=== PATIENT | male | born 1980 | race Caucasian/White ===

== ENCOUNTER 2018-08-27 14:03 | Inpatient (IN) | payer OTHER ==
[2018-08-27 17:29] VITALS: BMI 27.4
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
[2018-08-27] MEDS ORDERED: MENTHOL/PHENOL 1 EACH UD MM PRN (19:43)
[2018-08-27] MEDS ORDERED: BISMUTH SUBSALICYLATE 524 MG/30 ML UD PO PRN (19:43)
[2018-08-27] MEDS ORDERED: MAG HYDROX/AL HYDROX/SIMETH 30 ML UNIT-DOSE CUP PO PRN (19:43)
[2018-08-27] MEDS ORDERED: MELATONIN 5 MG TABLETS PO PRN (19:43)
[2018-08-27] MEDS ORDERED: ACETAMINOPHEN 325 MG TABLET (FP) PO PRN ×2 (19:43)
[2018-08-27] MEDS ORDERED: IBUPROFEN 400 MG TABLET (FP) PO PRN (19:43)
[2018-08-27] MEDS ORDERED: METHOCARBAMOL 500 MG TABLET PO PRN (19:43)
[2018-08-27] MEDS ORDERED: MAGNESIUM HYDROX 2400MG/30ML ORAL SUSPENSION 30 ML CUP PO PRN (19:43)
[2018-08-27] MEDS ORDERED: MAGNESIUM CITRATE 300 ML BOTTLE PO PRN (19:43)
[2018-08-27] MEDS ORDERED: NICOTINE POLACRILEX 2 MG GUM BUC PRN (19:43)
[2018-08-27] MEDS ORDERED: METHADONE HCL 10 MG TABLET (FOR DETOX USE ONLY) PO ONE ×2 (21:00→23:00)
[2018-08-27] MEDS: THIAMINE HCL 100 MG TABLET (FP) PO SCH (22:20)
[2018-08-28] MEDS ORDERED: METHADONE HCL 10 MG TABLET (FOR DETOX USE ONLY) PO ONE (10:00)
[2018-08-28 10:15] LABS: HEMATOCRIT 39.4 % (35.4-49); HEMOGLOBIN 13.1 GM/dL (11.7-16.9); MCH 30.6 pg (25.7-33.7); MCHC 33.4 g/dl (32.0-35.9); MEAN CELL VOLUME 91.7 fl (80-96); MEAN PLT VOLUME 10.4 fl (7.5-11.1); PLATELET COUNT 163 K/MM3 (134-434); RBC 4.29 M/mm3 (4.00-5.60); RDW 14.4 % (11.9-15.9); WHITE BLOOD COUNT 4.1 K/mm3 (4.0-10.0)
[2018-08-28] MEDS: NICOTINE 21 MG/24 HOURS TOPICAL PATCH TD SCH (10:19)
[2018-08-28] MEDS: PRENATAL VITAMINS W/ FOLIC ACID TABLET (FP) PO SCH (10:19)
[2018-08-28 10:25] LABS: ALK PHOS 93 U/L (45-117); ANION GAP 4 MMOL/L (8-16); BILIRUBIN,TOTAL 0.3 mg/dL (0.2-1); BLOOD UREA NITROGEN 9 mg/dL (7-18); CALCIUM 8.9 mg/dL (8.5-10.1); CHLORIDE 106 mmol/L (98-107); CO2 32 mmol/L (21-32); CREATININE 0.8 mg/dL (0.55-1.3); GLUCOSE,RANDOM 105 mg/dL (74-106); POTASSIUM 4.2 mmol/L (3.5-5.1); SGOT/AST 40 U/L (15-37); SGPT/ALT 74 U/L (13-61); SODIUM 141 mmol/L (136-145); TOT PROT 6.1 g/dl (6.4-8.2)
--- NOTE | 2018-08-28 14:28 | EKG ---
Test Reason : Blood Pressure : / mmHG Vent. Rate : 059 BPM Atrial Rate : 059 BPM P-R Int : 158 ms QRS Dur : 092 ms QT Int : 422 ms P-R-T Axes : 020 005 019 degrees QTc Int : 417 ms SINUS BRADYCARDIA MINIMAL VOLTAGE CRITERIA FOR LVH, MAY BE NORMAL VARIANT BORDERLINE ECG NO PREVIOUS ECGS AVAILABLE Confirmed by MD FALQUITO, BEATRICE ([id number]) on 08/28/2018 2:28:36 PM Referred By: Confirmed By:BEATRICE HUDDLESTON MD
--- NOTE | 2018-08-28 17:09 | PN ---
BHS COWS - Scale Resting Pulse: 0= [place] 80 or Below Sweatin= Beads of Sweat on Face Restless Observation: 0= Sits Still Pupil Size: 0= Normal to Room Light Bone or Joint Aches: 4=Acute Joint/Muscle Pain Runny Nose/ Eye Tearin= None GI Upset > 30mins: 0= None Tremor Observation of Outstretched Hands: 0= None Yawning Observation: 1= 1-2x During Session Anxiety or Irritability: 1=Feels Anxious/Irritable Goose Flesh Skin: 0=Smooth Skin COWS Score: 9 BHS Progress Note (SOAP) Subjective: sweats joint pain interrupted sleep Objective: 08/28/18 17:08 Vital Signs 08/28/18 08/28/18 09:59 14:38 Temperature 98.0 F 98.6 F Pulse Rate 71 67 Respiratory 18 18 Rate Blood Pressure 137/61 138/61 Laboratory Last Values WBC 4.1 K/mm3 (4.0-10.0) 08/28/18 07:48 RBC 4.29 M/mm3 (4.00-5.60) 08/28/18 07:48 Hgb 13.1 GM/dL (11.7-16.9) 08/28/18 07:48 Hct 39.4 % (35.4-49) 08/28/18 07:48 MCV 91.7 fl (80-96) 08/28/18 07:48 MCH 30.6 pg (25.7-33.7) 08/28/18 07:48 MCHC 33.4 g/dl (32.0-35.9) 08/28/18 07:48 RDW 14.4 % (11.9-15.9) 08/28/18 07:48 Plt Count 163 K/MM3 (134-434) 08/28/18 07:48 MPV 10.4 fl (7.5-11.1) 08/28/18 07:48 Sodium 141 mmol/L (136-145) 08/28/18 07:48 Potassium 4.2 mmol/L (3.5-5.1) 08/28/18 07:48 Chloride 106 mmol/L (98-107) 08/28/18 07:48 Carbon Dioxide 32 mmol/L (21-32) 08/28/18 07:48 Anion Gap 4 MMOL/L (8-16) L 08/28/18 07:48 BUN 9 mg/dL (7-18) 08/28/18 07:48 Creatinine 0.8 mg/dL (0.55-1.3) 08/28/18 07:48 Creat Clearance w eGFR 107.62 (>60) 08/28/18 07:48 Random Glucose 105 mg/dL (74-106) 08/28/18 07:48 Calcium 8.9 mg/dL (8.5-10.1) 08/28/18 07:48 Total Bilirubin 0.3 mg/dL (0.2-1) 08/28/18 07:48 AST 40 U/L (15-37) H 08/28/18 07:48 ALT 74 U/L (13-61) H 08/28/18 07:48 Alkaline Phosphatase 93 U/L (45-117) 08/28/18 07:48 Total Protein 6.1 g/dl (6.4-8.2) L 08/28/18 07:48 Albumin 3.0 g/dl (3.4-5.0) L 08/28/18 07:48 Labs noted Assessment: 08/28/18 17:08 AOX3 no distress EENT: wnl full rom ambulating in the unit Plan: continue detox increase fluids continue to monitor
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
[2018-08-28] MEDS: THIAMINE HCL 100 MG TABLET (FP) PO SCH (23:33)
[2018-08-28] MEDS: cloNIDine HCL 0.1 MG TABLET PO PRN (23:33)
[2018-08-28] MEDS: MIRTAZAPINE 15 MG TABLET (FP) PO SCH (23:33)
[2018-08-28] MEDS: hydrOXYzine PAMOATE 50 MG CAPSULE (FP) PO PRN (23:33)
[2018-08-29] MEDS ORDERED: METHADONE HCL 10 MG TABLET (FOR DETOX USE ONLY) PO ONE (10:00)
[2018-08-29] MEDS: NICOTINE 21 MG/24 HOURS TOPICAL PATCH TD SCH (10:34)
[2018-08-29] MEDS: PRENATAL VITAMINS W/ FOLIC ACID TABLET (FP) PO SCH (10:35)
--- NOTE | 2018-08-29 15:50 | PN ---
BHS COWS - Scale Resting Pulse: 1= [place] 81-100 Sweatin= Chills/Flushing Restless Observation: 3= Extraneous Movement Pupil Size: 0= Normal to Room Light Bone or Joint Aches: 2= Severe Diffuse Aches Runny Nose/ Eye Tearin= Runny Nose/Eyes GI Upset > 30mins: 1= Stomach Cramp Tremor Observation of Outstretched Hands: 2= Slight Tremor Visible Yawning Observation: 0= None Anxiety or Irritability: 2=Irritable/Anxious Goose Flesh Skin: 0=Smooth Skin COWS Score: 14 BHS Progress Note (SOAP) Subjective: Denies withdrawal symptoms presently stating medication is helping. Patient appears anxious. Objective: 08/29/18 15:48 Last Vital Signs Temp Pulse Resp BP Pulse Ox 98.4 F 89 18 100/61 08/29/18 14:27 08/29/18 14:27 08/29/18 14:27 08/29/18 14:27 Laboratory Tests 08/28/18 08/28/18 08/28/18 07:48 07:48 07:48 WBC 4.1 RBC 4.29 Hgb 13.1 Hct 39.4 MCV 91.7 MCH 30.6 MCHC 33.4 RDW 14.4 Plt Count 163 MPV 10.4 Sodium 141 Potassium 4.2 Chloride 106 Carbon Dioxide 32 Anion Gap 4 L BUN 9 Creatinine 0.8 Creat Clearance w eGFR 107.62 Random Glucose 105 Calcium 8.9 Total Bilirubin 0.3 AST 40 H ALT 74 H Alkaline Phosphatase 93 Total Protein 6.1 L Albumin 3.0 L RPR Titer Nonreactive Labs reviewed Assessment: 08/29/18 15:49 Withdrawal symptoms Plan: Continue detox Encouraged PO water intake
[2018-08-29] MEDS: hydrOXYzine PAMOATE 50 MG CAPSULE (FP) PO PRN (23:16)
[2018-08-29] MEDS: cloNIDine HCL 0.1 MG TABLET PO PRN (23:16)
[2018-08-29] MEDS: MIRTAZAPINE 15 MG TABLET (FP) PO SCH (23:16)
[2018-08-29] MEDS: THIAMINE HCL 100 MG TABLET (FP) PO SCH (23:37)
[2018-08-30] MEDS ORDERED: METHADONE HCL 10 MG TABLET (FOR DETOX USE ONLY) PO ONE (10:00)
[2018-08-30] MEDS: NICOTINE 21 MG/24 HOURS TOPICAL PATCH TD SCH (10:57)
[2018-08-30] MEDS: PRENATAL VITAMINS W/ FOLIC ACID TABLET (FP) PO SCH (10:58)
--- NOTE | 2018-08-30 15:05 | PN ---
[facility] Progress Note Note: PATIENT CONTINUE ON DETOX MTD REGIMEN. STATES HE FEELS BETTER, C/O INTERRUPTED SLEEP. Laboratory Tests 08/28/18 08/28/18 08/28/18 07:48 07:48 07:48 WBC 4.1 RBC 4.29 Hgb 13.1 Hct 39.4 MCV 91.7 MCH 30.6 MCHC 33.4 RDW 14.4 Plt Count 163 MPV 10.4 Sodium 141 Potassium 4.2 Chloride 106 Carbon Dioxide 32 Anion Gap 4 L BUN 9 Creatinine 0.8 Creat Clearance w eGFR 107.62 Random Glucose 105 Calcium 8.9 Total Bilirubin 0.3 AST 40 H ALT 74 H Alkaline Phosphatase 93 Total Protein 6.1 L Albumin 3.0 L RPR Titer Nonreactive Vital Signs Temperature 98.1 F 08/30/18 13:39 Pulse Rate 70 08/30/18 13:39 Respiratory Rate 16 08/30/18 13:39 Blood Pressure 107/59 L 08/30/18 13:39 O2 Sat by Pulse Oximetry (%) PE: ALERT AND ORIENTED X 3 SKIN WARM AND DRY +PERRLA, EOMS INTACT BL EXT FULL ROM, AMB AD FAB A/P: WITHDRAWAL SX CONTINUE DETOX D/C IN AM
[2018-08-30] MEDS: MIRTAZAPINE 15 MG TABLET (FP) PO SCH (22:13)
[2018-08-30] MEDS: THIAMINE HCL 100 MG TABLET (FP) PO SCH (22:14)
[2018-08-30] MEDS: hydrOXYzine PAMOATE 50 MG CAPSULE (FP) PO PRN (22:15)
[2018-08-31] MEDS ORDERED: METHADONE HCL 5 MG TABLET (FOR DETOX USE ONLY) PO ONE (06:00)
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
[2018-08-31 11:10] VITALS: BP 123/72; PULSE 87; TEMP 99.1
== END 2018-08-31 09:16 | disposition home or self-care (01) | DRG 773 ==
LOC: YASAS 14:03 → Y6N 20:47
PROVIDERS: ADMIT Surgery; ATTEND Surgery
PROC: HZ2ZZZZ Detoxification Services for Substance Abuse Treatment (ICD-10-PCS; principal; 2018-08-27)
DX: F11.23 Opioid dependence with withdrawal (principal); F14.20 Cocaine dependence, uncomplicated; F12.20 Cannabis dependence, uncomplicated; F17.210 Nicotine dependence, cigarettes, uncomplicated; F19.24 Other psychoactive substance dependence with psychoactive substance-induced mood disorder; G47.00 Insomnia, unspecified; B18.2 Chronic viral hepatitis C; Z91.19 Patient's noncompliance with other medical treatment and regimen
CPT/HCPCS: 36415; 80053; 85027; 86593; 93005; 93010; J0735

== ENCOUNTER 2019-05-07 11:16 | Inpatient (IN) | payer OTHER ==
[2019-05-07 12:16] VITALS: BMI 28.5
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
[2019-05-07] MEDS ORDERED: IBUPROFEN 400 MG TABLET (FP) PO PRN (13:34)
[2019-05-07] MEDS ORDERED: METHADONE HCL 10 MG TABLET (FOR DETOX USE ONLY) PO ONE (13:34)
[2019-05-07] MEDS ORDERED: MAG HYDROX/AL HYDROX/SIMETH 30 ML UNIT-DOSE CUP PO PRN (13:34)
[2019-05-07] MEDS ORDERED: MENTHOL/PHENOL 1 EACH UD MM PRN (13:34)
[2019-05-07] MEDS ORDERED: MAGNESIUM HYDROX 2400MG/30ML ORAL SUSPENSION 30 ML CUP PO PRN (13:34)
[2019-05-07] MEDS ORDERED: METHOCARBAMOL 500 MG TABLET PO PRN (13:34)
[2019-05-07] MEDS ORDERED: hydrOXYzine PAMOATE 25 MG CAPSULE (FP) PO PRN (13:34)
[2019-05-07] MEDS ORDERED: BISMUTH SUBSALICYLATE 524 MG/30 ML UD PO PRN (13:34)
[2019-05-07] MEDS ORDERED: cloNIDine HCL 0.1 MG TABLET PO PRN (13:34)
[2019-05-07] MEDS ORDERED: NICOTINE POLACRILEX 4 MG GUM BUC PRN (13:34)
[2019-05-07] MEDS ORDERED: MAGNESIUM CITRATE 300 ML BOTTLE PO PRN (13:34)
[2019-05-07] MEDS ORDERED: ACETAMINOPHEN 325 MG TABLET (FP) PO PRN ×2 (13:34)
[2019-05-07] MEDS ORDERED: MELATONIN 5 MG TABLETS PO PRN (22:00)
[2019-05-07] MEDS: THIAMINE HCL 100 MG TABLET (FP) PO SCH (22:11)
[2019-05-07] MEDS: SULFAMETHOXAZOLE/TRIMETHOPRIM 800MG/160MG D.S. TABLET PO SCH (22:11)
[2019-05-08] MEDS ORDERED: METHADONE HCL 10 MG TABLET (FOR DETOX USE ONLY) ONE (09:01)
[2019-05-08] MEDS ORDERED: METHADONE HCL 5 MG TABLET (FOR DETOX USE ONLY) ONE (09:02)
[2019-05-08 09:24] LABS: HEMATOCRIT 41.7 % (35.4-49); HEMOGLOBIN 13.9 GM/dL (11.7-16.9); MCHC 33.3 g/dl (32.0-35.9); MEAN CELL VOLUME 93.1 fl (80-96); MEAN PLT VOLUME 10.6 fl (7.5-11.1); PLATELET COUNT 229 K/MM3 (134-434); RBC 4.48 M/mm3 (4.00-5.60); RDW 13.7 % (11.9-15.9); WHITE BLOOD COUNT 5.2 K/mm3 (4.0-10.0)
[2019-05-08 09:32] LABS: ALBUMIN 3.6 g/dl (3.4-5.0); BILIRUBIN,TOTAL 0.4 mg/dL (0.2-1); BLOOD UREA NITROGEN 9.5 mg/dL (7-18); CALCIUM 9.2 mg/dL (8.5-10.1); CREATININE 0.9 mg/dL (0.55-1.3); POTASSIUM 4.4 mmol/L (3.5-5.1); TOT PROT 7.2 g/dl (6.4-8.2)
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
[2019-05-08] MEDS ORDERED: METHADONE (DETOX) 20 MG, METHADONE (DETOX) 5 MG PO ONE (10:00)
[2019-05-08] MEDS: PRENATAL VITAMINS W/ FOLIC ACID TABLET (FP) PO SCH (10:24)
[2019-05-08] MEDS: SULFAMETHOXAZOLE/TRIMETHOPRIM 800MG/160MG D.S. TABLET PO SCH ×2 (10:24→22:36)
--- NOTE | 2019-05-08 10:45 | PN ---
BHS COWS - Scale Resting Pulse: 0= [place] 80 or Below Sweatin= Chills/Flushing Restless Observation: 0= Sits Still Pupil Size: 1= Pupils >than Normal Bone or Joint Aches: 1= Mild Discomfort Runny Nose/ Eye Tearin= None GI Upset > 30mins: 1= Stomach Cramp Tremor Observation of Outstretched Hands: 2= Slight Tremor Visible Yawning Observation: 1= 1-2x During Session Anxiety or Irritability: 2=Irritable/Anxious Goose Flesh Skin: 3=Piloerection COWS Score: 12 BHS Progress Note (SOAP) Subjective: 38 years old male admitted on 05/07/19 for opiate withdrawal sx management treating with methadone detox regimen ate breakfast tolerated food and fluid well resting on bed feeling tired prefers to stay in bed today Objective: 05/08/19 10:45 Vital Signs Temperature 97 F L 05/08/19 09:06 Pulse Rate 76 05/08/19 09:06 Respiratory Rate 18 05/08/19 09:06 Blood Pressure 117/80 05/08/19 09:06 O2 Sat by Pulse Oximetry (%) Laboratory Last Values WBC 5.2 K/mm3 (4.0-10.0) 05/08/19 07:20 RBC 4.48 M/mm3 (4.00-5.60) 05/08/19 07:20 Hgb 13.9 GM/dL (11.7-16.9) 05/08/19 07:20 Hct 41.7 % (35.4-49) 05/08/19 07:20 MCV 93.1 fl (80-96) 05/08/19 07:20 MCH 31.0 pg (25.7-33.7) 05/08/19 07:20 MCHC 33.3 g/dl (32.0-35.9) 05/08/19 07:20 RDW 13.7 % (11.9-15.9) 05/08/19 07:20 Plt Count 229 K/MM3 (134-434) D 05/08/19 07:20 MPV 10.6 fl (7.5-11.1) 05/08/19 07:20 Sodium 139 mmol/L (136-145) 05/08/19 07:20 Potassium 4.4 mmol/L (3.5-5.1) 05/08/19 07:20 Chloride 107 mmol/L (98-107) 05/08/19 07:20 Carbon Dioxide 29 mmol/L (21-32) 05/08/19 07:20 Anion Gap 3 MMOL/L (8-16) L 05/08/19 07:20 BUN 9.5 mg/dL (7-18) 05/08/19 07:20 Creatinine 0.9 mg/dL (0.55-1.3) 05/08/19 07:20 Est GFR (CKD-EPI)AfAm 124.26 05/08/19 07:20 Est GFR (CKD-EPI)NonAf 107.21 05/08/19 07:20 Random Glucose 82 mg/dL (74-106) 05/08/19 07:20 Calcium 9.2 mg/dL (8.5-10.1) 05/08/19 07:20 Total Bilirubin 0.4 mg/dL (0.2-1) 05/08/19 07:20 AST 31 U/L (15-37) 05/08/19 07:20 ALT 31 U/L (13-61) 05/08/19 07:20 Alkaline Phosphatase 121 U/L (45-117) H 05/08/19 07:20 Total Protein 7.2 g/dl (6.4-8.2) 05/08/19 07:20 Albumin 3.6 g/dl (3.4-5.0) 05/08/19 07:20 RPR Titer Nonreactive (NONREACTIVE) 05/08/19 07:20 HIV 1&2 Antibody Screen Negative 05/08/19 07:20 HIV P24 Antigen Negative 05/08/19 07:20 lab noted Assessment: 05/08/19 10:45 opiate withdrawal Plan: methadone regimen
[2019-05-08] MEDS: busPIRone HCL 10 MG TABLET (FP) PO SCH ×2 (11:20→22:36)
[2019-05-08] MEDS: THIAMINE HCL 100 MG TABLET (FP) PO SCH (22:36)
[2019-05-08] MEDS: SUVOREXANT 10 MG TABLET PO PRN (22:37)
[2019-05-09] MEDS ORDERED: METHADONE HCL 10 MG TABLET (FOR DETOX USE ONLY) PO ONE (10:00)
--- NOTE | 2019-05-09 10:12 | PN ---
BHS COWS - Scale Resting Pulse: 0= IN 80 or Below Sweatin= Chills/Flushing Restless Observation: 0= Sits Still Pupil Size: 1= Pupils >than Normal Bone or Joint Aches: 1= Mild Discomfort Runny Nose/ Eye Tearin= Runny Nose/Eyes GI Upset > 30mins: 1= Stomach Cramp Tremor Observation of Outstretched Hands: 1= Tremor [place], Not Seen Yawning Observation: 1= 1-2x During Session Anxiety or Irritability: 1=Feels Anxious/Irritable Goose Flesh Skin: 0=Smooth Skin COWS Score: 9 BHS Progress Note (SOAP) Subjective: 38 years old male admitted on 05/07/19 for opiate withdrawal sx management treating with methadone detox regimen mild hot and cold and sweating doing ok today ate breakfast showered discuss medication assisted treatment program and pick remover narcan from pharmacy Objective: 05/09/19 10:13 Vital Signs Temperature 97.5 F L 05/09/19 09:26 Pulse Rate 64 05/09/19 09:26 Respiratory Rate 16 05/09/19 09:26 Blood Pressure 122/75 05/09/19 09:26 O2 Sat by Pulse Oximetry (%) Laboratory Last Values WBC 5.2 K/mm3 (4.0-10.0) 05/08/19 07:20 RBC 4.48 M/mm3 (4.00-5.60) 05/08/19 07:20 Hgb 13.9 GM/dL (11.7-16.9) 05/08/19 07:20 Hct 41.7 % (35.4-49) 05/08/19 07:20 MCV 93.1 fl (80-96) 05/08/19 07:20 MCH 31.0 pg (25.7-33.7) 05/08/19 07:20 MCHC 33.3 g/dl (32.0-35.9) 05/08/19 07:20 RDW 13.7 % (11.9-15.9) 05/08/19 07:20 Plt Count 229 K/MM3 (134-434) D 05/08/19 07:20 MPV 10.6 fl (7.5-11.1) 05/08/19 07:20 Sodium 139 mmol/L (136-145) 05/08/19 07:20 Potassium 4.4 mmol/L (3.5-5.1) 05/08/19 07:20 Chloride 107 mmol/L (98-107) 05/08/19 07:20 Carbon Dioxide 29 mmol/L (21-32) 05/08/19 07:20 Anion Gap 3 MMOL/L (8-16) L 05/08/19 07:20 BUN 9.5 mg/dL (7-18) 05/08/19 07:20 Creatinine 0.9 mg/dL (0.55-1.3) 05/08/19 07:20 Est GFR (CKD-EPI)AfAm 124.26 05/08/19 07:20 Est GFR (CKD-EPI)NonAf 107.21 05/08/19 07:20 Random Glucose 82 mg/dL (74-106) 05/08/19 07:20 Calcium 9.2 mg/dL (8.5-10.1) 05/08/19 07:20 Total Bilirubin 0.4 mg/dL (0.2-1) 05/08/19 07:20 AST 31 U/L (15-37) 05/08/19 07:20 ALT 31 U/L (13-61) 05/08/19 07:20 Alkaline Phosphatase 121 U/L (45-117) H 05/08/19 07:20 Total Protein 7.2 g/dl (6.4-8.2) 05/08/19 07:20 Albumin 3.6 g/dl (3.4-5.0) 05/08/19 07:20 RPR Titer Nonreactive (NONREACTIVE) 05/08/19 07:20 HIV 1&2 Antibody Screen Negative 05/08/19 07:20 HIV P24 Antigen Negative 05/08/19 07:20 lab noted Assessment: 05/09/19 10:14 opiate withdrawal Plan: methadone regimen
[2019-05-09] MEDS: SULFAMETHOXAZOLE/TRIMETHOPRIM 800MG/160MG D.S. TABLET PO SCH ×2 (10:19→22:21)
[2019-05-09] MEDS: PRENATAL VITAMINS W/ FOLIC ACID TABLET (FP) PO SCH (10:19)
[2019-05-09] MEDS: busPIRone HCL 10 MG TABLET (FP) PO SCH ×2 (10:19→22:21)
[2019-05-09] MEDS: THIAMINE HCL 100 MG TABLET (FP) PO SCH (22:21)
[2019-05-09] MEDS: SUVOREXANT 10 MG TABLET PO PRN (22:22)
[2019-05-10] MEDS ORDERED: METHADONE HCL 5 MG TABLET (FOR DETOX USE ONLY) ONE (08:33)
[2019-05-10] MEDS ORDERED: METHADONE HCL 10 MG TABLET (FOR DETOX USE ONLY) ONE (08:33)
[2019-05-10 09:08] VITALS: BP 114/63; PULSE 76; TEMP 98.5
[2019-05-10] MEDS: SULFAMETHOXAZOLE/TRIMETHOPRIM 800MG/160MG D.S. TABLET PO SCH (09:14)
[2019-05-10] MEDS: PRENATAL VITAMINS W/ FOLIC ACID TABLET (FP) PO SCH (09:14)
[2019-05-10] MEDS: busPIRone HCL 10 MG TABLET (FP) PO SCH (09:15)
[2019-05-10] MEDS ORDERED: METHADONE (DETOX) 10 MG, METHADONE (DETOX) 5 MG PO ONE (10:00)
--- NOTE | 2019-05-10 13:26 | DS ---
[facility] Detox Discharge Summary Admission Date: 05/07/19 Discharge Date: 05/10/19 (Pt left AMA) - History Present History: Cannabis Dependence, Cocaine Dependence, Opioid Dependence Additional Comments: Pt left AMA. Pt did not complete the detox protocol. Pt states, "I have stuff to take care of". An attempt to let pt stay and complete the detox protocol failed. Pt is encouraged to follow-up with an outpatient CD program and also to follow-up with his PMD. Pt verbalized understanding of the information given. Pt is alert and oriented x3 and in no acute respiratory distress. Pertinent Past History: h/o heroin, cannabis, and cocaine use disorder. - Physical Exam Results Vital Signs: Vital Signs Temperature 98.5 F 05/10/19 09:07 Pulse Rate 76 05/10/19 09:07 Respiratory Rate 16 05/10/19 09:07 Blood Pressure 114/63 05/10/19 09:07 O2 Sat by Pulse Oximetry (%) Vital Signs 05/10/19 05/10/19 05:54 09:07 Temperature 96.2 F L 98.5 F Pulse Rate 52 L 76 Respiratory 18 16 Rate Blood Pressure 105/66 114/63 Laboratory Last Values WBC 5.2 K/mm3 (4.0-10.0) 05/08/19 07:20 RBC 4.48 M/mm3 (4.00-5.60) 05/08/19 07:20 Hgb 13.9 GM/dL (11.7-16.9) 05/08/19 07:20 Hct 41.7 % (35.4-49) 05/08/19 07:20 MCV 93.1 fl (80-96) 05/08/19 07:20 MCH 31.0 pg (25.7-33.7) 05/08/19 07:20 MCHC 33.3 g/dl (32.0-35.9) 05/08/19 07:20 RDW 13.7 % (11.9-15.9) 05/08/19 07:20 Plt Count 229 K/MM3 (134-434) D 05/08/19 07:20 MPV 10.6 fl (7.5-11.1) 05/08/19 07:20 Sodium 139 mmol/L (136-145) 05/08/19 07:20 Potassium 4.4 mmol/L (3.5-5.1) 05/08/19 07:20 Chloride 107 mmol/L (98-107) 05/08/19 07:20 Carbon Dioxide 29 mmol/L (21-32) 05/08/19 07:20 Anion Gap 3 MMOL/L (8-16) L 05/08/19 07:20 BUN 9.5 mg/dL (7-18) 05/08/19 07:20 Creatinine 0.9 mg/dL (0.55-1.3) 05/08/19 07:20 Est GFR (CKD-EPI)AfAm 124.26 05/08/19 07:20 Est GFR (CKD-EPI)NonAf 107.21 05/08/19 07:20 Random Glucose 82 mg/dL (74-106) 05/08/19 07:20 Calcium 9.2 mg/dL (8.5-10.1) 05/08/19 07:20 Total Bilirubin 0.4 mg/dL (0.2-1) 05/08/19 07:20 AST 31 U/L (15-37) 05/08/19 07:20 ALT 31 U/L (13-61) 05/08/19 07:20 Alkaline Phosphatase 121 U/L (45-117) H 05/08/19 07:20 Total Protein 7.2 g/dl (6.4-8.2) 05/08/19 07:20 Albumin 3.6 g/dl (3.4-5.0) 05/08/19 07:20 RPR Titer Nonreactive (NONREACTIVE) 05/08/19 07:20 HIV 1&2 Antibody Screen Negative 05/08/19 07:20 HIV P24 Antigen Negative 05/08/19 07:20 Labs noted. Pertinent Admission Physical Exam Findings: withdrawal symptoms. - Treatment Hospital Course: Detox Protocol Followed - Medication Discharge Medications: Ambulatory Orders Buspirone HCl [Buspar -] 15 mg PO DAILY 05/07/19 Sulfamethoxazole/Trimethoprim [Sulfamethoxazole-Tmp Ds Tablet] 1 each PO DAILY 05/07/19 Naloxone HCl [Narcan] 4 mg NS ASDIR PRN #1 spray 05/08/19 - Diagnosis (1) Opioid dependence with withdrawal Status: Acute (2) Cocaine dependence Status: Chronic Qualifiers: Substance use status: uncomplicated Qualified Code(s): F14.20 - Cocaine dependence, uncomplicated (3) HCV (hepatitis C virus) Status: Chronic Qualifiers: Viral hepatitis chronicity: chronic (4) Marijuana dependence Status: Chronic (5) Nicotine dependence Status: Chronic Qualifiers: Nicotine product type: cigarettes Substance use status: uncomplicated Qualified Code(s): F17.210 - Nicotine dependence, cigarettes, uncomplicated - AMA Did Patient Leave Against Medical Advice: Yes BHS COWS - Scale Resting Pulse: 0= [place] 80 or Below Sweatin= Beads of Sweat on Face Restless Observation: 1= Difficult to Sit Still Pupil Size: 0= Normal to Room Light Bone or Joint Aches: 2= Severe Diffuse Aches Runny Nose/ Eye Tearin= None GI Upset > 30mins: 0= None Tremor Observation of Outstretched Hands: 0= None Yawning Observation: 0= None Anxiety or Irritability: 2=Irritable/Anxious Goose Flesh Skin: 0=Smooth Skin COWS Score: 8
[2019-05-11] MEDS ORDERED: METHADONE HCL 10 MG TABLET (FOR DETOX USE ONLY) PO ONE (10:00)
[2019-05-12] MEDS ORDERED: METHADONE HCL 5 MG TABLET (FOR DETOX USE ONLY) PO ONE (06:00)
== END 2019-05-10 09:20 | disposition left against medical advice (07) | DRG 770 ==
LOC: YASAS 11:16 → Y3N 14:06
PROVIDERS: ADMIT Allergy & Immunology; ATTEND Allergy & Immunology
PROC: HZ2ZZZZ Detoxification Services for Substance Abuse Treatment (ICD-10-PCS; principal; 2019-05-07)
DX: F11.23 Opioid dependence with withdrawal (principal); F14.20 Cocaine dependence, uncomplicated; F12.20 Cannabis dependence, uncomplicated; F17.210 Nicotine dependence, cigarettes, uncomplicated; F19.24 Other psychoactive substance dependence with psychoactive substance-induced mood disorder; F19.280 Other psychoactive substance dependence with psychoactive substance-induced anxiety disorder; F19.282 Other psychoactive substance dependence with psychoactive substance-induced sleep disorder; B18.2 Chronic viral hepatitis C; L02.414 Cutaneous abscess of left upper limb; Z56.0 Unemployment, unspecified; Z91.5 Personal history of self-harm; Z59.0 Homelessness
CPT/HCPCS: 36415; 80053; 85027; 86593; 87389